=== PATIENT | female | born 1990 | race American Indian/Alaskan Native ===

== ENCOUNTER 2020-08-29 05:24 | Emergency (ER) | payer OTHER, MEDICAID ==
[2020-08-29] MEDS ORDERED: HYDROcodone/ACETAMINOPHEN 5-325 MG TAB PO ONE (06:20)
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
[2020-08-29 07:20] VITALS: BP 124/86
== END 2020-08-29 09:51 | disposition home or self-care (01) ==
LOC: ED 05:24
DX: M54.2 Cervicalgia (principal); R51.9 Headache, unspecified; R07.89 Other chest pain; M54.9 Dorsalgia, unspecified; F17.200 Nicotine dependence, unspecified, uncomplicated; V89.2XXA Person injured in unspecified motor-vehicle accident, traffic, initial encounter; Y93.89 Activity, other specified; Y92.488 Other paved roadways as the place of occurrence of the external cause; Y99.8 Other external cause status
CPT/HCPCS: 70450; 71046; 72070; 72100; 72125; 99284